=== PATIENT | male | born 1945 | race Caucasian/White ===

== ENCOUNTER 2017-12-27 20:26 | Inpatient (IN) | payer MEDICARE ==
[~2017-12-27] VITALS: Ht 170.2 cm; Wt 86.1 kg
[2017-12-27] MEDS ORDERED: IOHEXOL 350 MG/ML 10 ML VIAL (for RAD DIAG) IVCONTRAST ONE (20:27)
[2017-12-27 20:32] VITALS: BP 174/83; PULSE 80; RESP 18; TEMP 99.3; O2SAT 96
[2017-12-27 20:36] VITALS: RESP 18; O2SAT 96
[2017-12-27] MEDS ORDERED: ZOLO100T PO (20:58)
[2017-12-27 21:05] LABS: AUTOMATED NEUTROPHIL # 11.1 TH/MM3 (1.8-7.7); BASOPHIL # 0.3 TH/MM3 (0-0.2); EOSINOPHIL # 0.2 TH/MM3 (0-0.4); EOSINOPHIL % 1.4 % (0.0-4.0); HEMATOCRIT 44.5 % (39.0-51.0); HEMOGLOBIN 15.2 GM/DL (13.0-17.0); LYMPH % 7.9 % (9.0-44.0); MEAN CELL VOLUME 88.1 FL (80.0-100.0); MEAN CORPUSCULAR HGB CONC 34.1 % (32.0-36.0); MEAN PLATELET VOLUME 7.4 FL (7.0-11.0); MONO % 2.7 % (0.0-8.0); MONOCYTE # 0.4 TH/MM3 (0-0.9); PLATELET COUNT 275 TH/MM3 (150-450); RED BLOOD COUNT 5.05 MIL/MM3 (4.50-5.90); WHITE BLOOD COUNT 13.1 TH/MM3 (4.0-11.0)
[2017-12-27 21:12] LABS: CHLORIDE 101 MEQ/L (98-107); SODIUM (NA) 138 MEQ/L (136-145)
[2017-12-27 21:15] LABS: CALCIUM 8.6 MG/DL (8.5-10.1)
[2017-12-27 21:16] LABS: ALBUMIN 3.9 GM/DL (3.4-5.0); BICARBONATE 29.7 MEQ/L (21.0-32.0); BLOOD UREA NITROGEN 22 MG/DL (7-18); GLUCOSE,RANDOM 109 MG/DL (74-106)
[2017-12-27 21:18] LABS: INTERNATIONAL NORMALIZED RATIO 1.1 RATIO; PROTHROMBIN TIME - PATIENT 11.4 SEC (9.8-11.6)
[2017-12-27 21:19] LABS: ALT (GPT) 18 U/L (12-78); AST (GOT) 17 U/L (15-37); CREATININE 0.98 MG/DL (0.60-1.30); GLOMERULAR FILTRATION RATE 75 ML/MIN (>89)
[2017-12-27 21:21] LABS: TOTAL BILIRUBIN ADULT 0.3 MG/DL (0.2-1.0); TOTAL PROTEIN 7.3 GM/DL (6.4-8.2)
[2017-12-27 21:22] LABS: ALKALINE PHOSPHATASE 80 U/L (45-117)
[2017-12-27 21:24] LABS: TROPONIN I LESS THAN 0.02 NG/ML (0.02-0.05)
[2017-12-27] MEDS ORDERED: KETOROLAC TROMETHAMINE 30 MG/ML (IVP) VIAL IV PUSH ONE (21:30)
[2017-12-27] MEDS ORDERED: ONDANSETRON HCL 4 MG/2 ML VIAL IV PUSH ONE (21:30)
[2017-12-27 21:42] VITALS: BP 174/76; PULSE 79; RESP 16; O2SAT 96
--- NOTE | 2017-12-27 21:43 | PD ---
HPI Chief Complaint: Abdominal Pain Time Seen by Provider: 20:29 Travel History International Travel<30 days: No Contact w/Intl Traveler<30days: No Traveled to known affect area: No History of Present Illness HPI Patient is a 72-year-old male presents emergency department with a 3-4 day history of nausea vomiting intermittent diarrhea. Patient was actually at a local seafood restaurant tonight when he had 2 episodes of emesis which left him feeling very weak almost like he was going to pass out. He states abdominal pain is cramping throughout his entire abdomen is been gradually worsening over the past 3-4 days. He states he had a colonoscopy and is due for another one but his last colonoscopy showed no abnormality. He has had chills without fevers. Very loose stool and nonbilious nonbloody emesis. He states his symptoms have never happened to him before 3 or 4 days ago. Has not had any chest pain no shortness of breath no blood in stool no blood in the emesis. Symptoms are moderate, for the past 3-4 days, gradually worsening and associated signs and symptoms as above. Patient cannot think of any inciting events but the only thing that he is eaten that is new for him is the shrimp he had tonight and thinks that might be playing a part of it however multiple other parties had the shrimp tonight nobody else is sick. PFSH Past Medical History Anxiety: Yes Tetanus Vaccination: < 5 Years Influenza Vaccination: Yes Social History Alcohol Use: Yes (Socially) Tobacco Use: No Substance Use: No Allergies-Medications (Allergen,Severity, Reaction): Coded Allergies: No Known Drug Allergies (Verified Allergy, Unknown, 12/27/17) Reported Meds & Prescriptions Reported Meds & Active Scripts Active Reported Zoloft (Sertraline HCl) 100 Mg Tab 100 Mg PO DAILY Review of Systems Except as stated in HPI: all other systems reviewed are Neg Physical Exam Narrative GENERAL: Well-developed, well-nourished, nontoxic appearance, no obvious distress. SKIN: Focused skin assessment warm/dry. HEAD: Atraumatic. Normocephalic. EYES: Pupils equal and round. No scleral icterus. No injection or drainage. ENT: No nasal bleeding or discharge. Mucous membranes pink and moist. NECK: Trachea midline. No JVD. CARDIOVASCULAR: Regular rate and rhythm. No murmur appreciated. RESPIRATORY: No accessory muscle use. Clear to auscultation. Breath sounds equal bilaterally. GASTROINTESTINAL: Abdomen soft with some voluntary guarding, no rebound no percussive tenderness. No CVA tenderness. Voluntary guarding is more pronounced in the right upper quadrant. MUSCULOSKELETAL: No obvious deformities. No clubbing. No cyanosis. No edema. NEUROLOGICAL: Awake and alert. No obvious cranial nerve deficits. Motor grossly within normal limits. Normal speech. PSYCHIATRIC: Appropriate mood and affect; insight and judgment normal. Data Data Last Documented VS Vital Signs Date Time Temp Pulse Resp B/P (MAP) Pulse Ox O2 Delivery O2 Flow Rate FiO2 12/27/17 23:14 68 18 174/76 (108) 95 Room Air 12/27/17 20:32 99.3 Orders Orders Electrocardiogram (12/27/17 20:29) Complete Blood Count With Diff (12/27/17 20:29) Comprehensive Metabolic Panel (12/27/17 20:29) Troponin I (12/27/17 20:29) Act Partial Throm Time (Ptt) (12/27/17 20:29) Prothrombin Time / Inr (Pt) (12/27/17 20:29) Urinalysis - C+S If Indicated (12/27/17 20:29) Ecg Monitoring (12/27/17 20:29) Iv Access Insert/Monitor (12/27/17 20:29) Oximetry (12/27/17 20:29) Ct Abd/Pel W Iv Contrast(Rout) (12/27/17 ) Ondansetron Inj (Zofran Inj) (12/27/17 21:30) Ketorolac Inj (Toradol Inj) (12/27/17 21:30) Iohexol 350 Inj (Omnipaque 350 Inj) (12/27/17 20:27) Vancomycin Inj (Vancomycin Inj) (12/27/17 23:45) Metronidazole 500 Mg Inj (Flagyl 500 Mg (12/27/17 23:45) Blood Culture (12/27/17 23:34) Piperacil-Tazo 4.5 Gm Premix (Zosyn 4.5 (12/27/17 23:45) Fluconazole 200 Mg Premix Bag (Diflucan (12/28/17 00:00) Admit To Inpatient (12/28/17 ) Vital Signs (Adult) Q4H (12/28/17 00:38) Activity Oob With Assistance (12/28/17 00:38) Judo Instructor / Telemetry .CONTINUOUS (12/28/17 00:38) Diet Npo (12/28/17 Breakfast) Sodium Chlor 0.9% 1000 Ml Inj (Ns 1000 M (12/28/17 00:38) Sodium Chloride 0.9% Flush (Ns Flush) (12/28/17 00:45) Sodium Chloride 0.9% Flush (Ns Flush) (12/28/17 09:00) Ondansetron Inj (Zofran Inj) (12/28/17 00:45) Basic Metabolic Panel (Bmp) (12/29/17 06:00) Complete Blood Count With Diff (12/29/17 06:00) Pt Request For Service (12/28/17 00:38) Case Management Consult (12/28/17 00:38) Naloxone Inj (Narcan Inj) (12/28/17 00:45) Inpatient Certification (12/28/17 ) Insert Ng Tube (12/28/17 00:37) Admit Order (Ed Use Only) (12/28/17 ) Consult General Surgery (12/28/17 ) Labs Laboratory Tests Test 12/27/17 20:51 12/27/17 21:40 White Blood Count 13.1 TH/MM3 Red Blood Count 5.05 MIL/MM3 Hemoglobin 15.2 GM/DL Hematocrit 44.5 % Mean Corpuscular Volume 88.1 FL Mean Corpuscular Hemoglobin 30.0 PG Mean Corpuscular Hemoglobin Concent 34.1 % Red Cell Distribution Width 14.0 % Platelet Count 275 TH/MM3 Mean Platelet Volume 7.4 FL Neutrophils (%) (Auto) 86.0 % Lymphocytes (%) (Auto) 7.9 % Monocytes (%) (Auto) 2.7 % Eosinophils (%) (Auto) 1.4 % Basophils (%) (Auto) 2.0 % Neutrophils # (Auto) 11.1 TH/MM3 Lymphocytes # (Auto) 1.0 TH/MM3 Monocytes # (Auto) 0.4 TH/MM3 Eosinophils # (Auto) 0.2 TH/MM3 Basophils # (Auto) 0.3 TH/MM3 CBC Comment DIFF FINAL Differential Comment Prothrombin Time 11.4 SEC Prothromb Time International Ratio 1.1 RATIO Activated Partial Thromboplast Time 21.8 SEC Blood Urea Nitrogen 22 MG/DL Creatinine 0.98 MG/DL Random Glucose 109 MG/DL Total Protein 7.3 GM/DL Albumin 3.9 GM/DL Calcium Level 8.6 MG/DL Alkaline Phosphatase 80 U/L Aspartate Amino Transf (AST/SGOT) 17 U/L Alanine Aminotransferase (ALT/SGPT) 18 U/L Total Bilirubin 0.3 MG/DL Sodium Level 138 MEQ/L Potassium Level 3.7 MEQ/L Chloride Level 101 MEQ/L Carbon Dioxide Level 29.7 MEQ/L Anion Gap 7 MEQ/L Estimat Glomerular Filtration Rate 75 ML/MIN Troponin I LESS THAN 0.02 NG/ML Urine Color YELLOW Urine Turbidity CLEAR Urine pH 6.0 Urine Specific [place] 1.025 Urine Protein 30 mg/dL Urine Glucose (UA) NEG mg/dL Urine Ketones NEG mg/dL Urine Occult Blood NEG Urine Nitrite NEG Urine Bilirubin NEG Urine Urobilinogen 0.2 MG/DL Urine Leukocyte Esterase NEG Urine Squamous Epithelial Cells 0-5 /hpf Urine Amorphous Sediment FEW Urine Mucus FEW /lpf Microscopic Urinalysis Comment CULT NOT INDICATED MDM Medical Decision Making Medical Screen Exam Complete: Yes Emergency Medical Condition: Yes Differential Diagnosis Gastritis, gastroenteritis, pancreatitis, electrolyte abnormally, dehydration. Narrative Course Patient was room to the emergency department, given the voluntary guarding in his age I think that a CAT scan of his abdomen is indicated. He is minimally elevated white blood cell count electrolytes are fairly within normal limits. Last 24 hours Impressions Abdomen/Pelvis CT 12/27/17 0000 Signed Impressions: Service Date/Time: Wednesday, December 27, 2017 22:45 - CONCLUSION: 1. There is an acute inflammatory process involving the mesentery and loops of proximal jejunum within the left upper quadrant. Microperforation is suspected given the tiny foci of extraluminal air within the mesentery. No abscess. Dilatation of the small bowel consistent with a focal ileus. 2. Colonic diverticulosis. 3. Left internal hernia. This contains fat. John Warren Jr., MD Results were discussed with the patient as well as Dr. Wahl, Dr. Wahl recommends the patient be transferred to the main hospital, likely will be managed nonoperatively but if the patient should worsening pain may be an operative candidate in the future. He recommends broad-spectrum antibiotics as well as Diflucan, n.p.o. NG tube and IV hydration. All of which have been ordered. These recommendations were discussed with the patient who is agreeable. Ultimately discussed with Dr. Goddard for admission and she is agreeable. The patient is feeling much better after Toradol and is stable for the floor. Diagnosis Primary Impression: Jejunitis Additional Impression: Small bowel perforation Admitting Information Admitting Physician Requests: Admit Condition: Stable Dru Alves MD Dec 27, 2017 21:43
[2017-12-27 21:56] LABS: BILIRUBIN, URINE NEG (NEG); BLOOD, URINE NEG (NEG); GLUCOSE,URINE NEG (NEG); KETONE, URINE NEG (NEG); NITRITE,URINE NEG (NEG); URINE COLOR YELLOW (YELLW/STRAW); URINE LEUKOCYTE ESTERASE NEG (NEG)
[2017-12-27 22:00] LABS: AMORPHOUS SEDIMENT, URINE FEW; MUCUS URINE FEW /lpf (OCC); SQUAMOUS EPITHELIAL CELL URINE 0-5 /hpf (0-5)
--- NOTE | 2017-12-27 23:04 | RADRPT ---
EXAM DATE/TIME: 12/27/2017 22:45 [facility] COMPARISON: No previous studies available for comparison. INDICATIONS : Abdomen pain with vomiting. IV CONTRAST: 70 cc Omnipaque 350 (iohexol) IV ORAL CONTRAST: No oral contrast ingested. RADIATION DOSE: 12.74 CTDIvol (mGy) MEDICAL HISTORY : None SURGICAL HISTORY : None. ENCOUNTER: Initial ACUITY: 1 day PAIN SCALE: 8/10 LOCATION: Bilateral abdomen TECHNIQUE: Volumetric scanning of the abdomen and pelvis was performed. Using automated exposure control and ad justment of the mA and/or kV according to patient size, radiation dose was kept as low as reasonably achievable to obtain optimal diagnostic quality images. DICOM format image data is available electro nically for review and comparison. FINDINGS: LOWER LUNGS: The visualized lower lungs are clear. Coronary artery atherosclerotic calcifications noted. LIVER: Homogeneous density without lesion. There is no dilation of the biliary tree. No calcified gallston es. SPLEEN: Normal size without lesion. PANCREAS: Within normal limits. KIDNEYS: Normal in size and shape. There is no mass, stone or hydronephrosis. ADRENAL GLANDS: Within normal limits. VASCULAR: There is no aortic aneurysm. BOWEL/MESENTERY: There is acute inflammatory process involving the mesentery and multiple loops of proximal jejunum wi thin the left upper quadrant. There is circumferential wall thickening. There are tiny foci of extral uminal air seen within the mesentery without large volume pneumoperitoneum. There is dilatation of th juan ramon loops of bowel. Mesenteric veins are patent. The no abscess. Small volume free fluid. Multiple di verticula throughout the colon without acute inflammation. ABDOMINAL WALL: Within normal limits. RETROPERITONEUM: There is no lymphadenopathy. BLADDER: No wall thickening or mass. REPRODUCTIVE: Within normal limits. INGUINAL: There is a left humeral hernia containing fat. No adenopathy. MUSCULOSKELETAL: Within normal limits for patient age. CONCLUSION: 1. There is an acute inflammatory process involving the mesentery and loops of proximal jejunum withi n the left upper quadrant. Microperforation is suspected given the tiny foci of extraluminal air with in the mesentery. No abscess. Dilatation of the small bowel consistent with a focal ileus. 2. Colonic diverticulosis. 3. Left internal hernia. This contains fat. John Warren Jr., MD on December 27, 2017 at 22:57 Board Certified Radiologist. This report was verified electronically.
[2017-12-27 23:14] VITALS: BP 174/76; PULSE 68; RESP 18; O2SAT 95
[2017-12-27] MEDS ORDERED: VANCOMYCIN INJ 1,000 MG in SODIUM CHLOR 0.9% 250 ML INJ 250 ML IV ONE (23:45)
[2017-12-27] MEDS ORDERED: metroNIDAZOLE 500 MG INJ 100 ML IV ONE (23:45)
[2017-12-27] MEDS ORDERED: PIPERACIL-TAZO 4.5 GM PREMIX 100 ML IV ONE (23:45)
[2017-12-28] VITALS (8 sets, daily range): BP systolic 107–140; BP diastolic 56–75; PULSE 69–85; RESP 16–21; TEMP 98.2–100.6; O2SAT 91–96
[2017-12-28] MEDS ORDERED: FLUCONAZOLE 200 MG PREMIX BAG 100 ML IV ONE
[2017-12-28] MEDS: SODIUM CHLOR 0.9% 1000 ML INJ 1,000 ML IV SCH ×3 (00:38→17:54)
[2017-12-28] MEDS ORDERED: Vancomycin Consult Pharmacy 1 EA OTHER SCH (00:45)
[2017-12-28] MEDS ORDERED: NALOXONE HCL 0.4 MG/ML AMP IV PUSH PRN (00:45)
[2017-12-28] MEDS ORDERED: SODIUM CHLORIDE 0.9% FLUSH 10 ML FLUSH IV FLUSH PRN (00:45)
[2017-12-28] MEDS ORDERED: KETOROLAC TROMETHAMINE 30 MG/ML (IVP) VIAL IV PUSH PRN (04:00)
[2017-12-28] MEDS: PIPERACIL-TAZO 4.5 GM PREMIX 100 ML IV SCH ×3 (06:10→17:45)
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
[2017-12-28] MEDS: MORPHINE SULFATE 2 MG/ML INJ IV PUSH PRN ×2 (06:39→16:14)
[2017-12-28] MEDS: ONDANSETRON HCL 4 MG/2 ML VIAL IVP PRN ×2 (06:39→16:13)
[2017-12-28] MEDS: SODIUM CHLORIDE 0.9% FLUSH 10 ML FLUSH IV FLUSH SCH ×2 (08:44→21:00)
[2017-12-28] MEDS: VANCOMYCIN INJ 1,750 MG in SODIUM CHLORID 0.9% 500 ML INJ 500 ML IV SCH (10:41)
--- NOTE | 2017-12-28 14:45 | HHI.FPPN ---
Addendum to progress note ADDENDUM Reason for addendum: Additonal documentation Additional information Patient seen. Pain is improved. Minimal abdominal tenderness at this time. Tolerating p.o. intake. Stable clinical status overall. Andrés Hebert MD Dec 28, 2017 14:45
--- NOTE | 2017-12-28 17:23 | MB ---
cc: Preston Wahl MD DATE OF CONSULT: 12/28/2017 REASON FOR CONSULTATION: Microperforation of the jejunum. HISTORY OF PRESENT ILLNESS: The patient is a very pleasant 72-year-old male who states that over the past couple of weeks he has been having abdominal pain in the lower mid abdomen. This became incredibly severe over the last couple of days. He thought maybe it was a hernia. The patient apparently reported a syncopal episode yesterday after stepping outside from a restaurant. PAST MEDICAL HISTORY: Significant for a history of bronchitis. PAST SURGICAL HISTORY: None. ALLERGIES: HE HAS NO KNOWN DRUG ALLERGIES. SOCIAL HISTORY: He has never smoked, no ETOH abuse, no drugs. PHYSICAL EXAMINATION: GENERAL: Reveals a pleasant male, in no acute distress. VITAL SIGNS: Blood pressure 130/64, pulse 80, respirations 16, 96% sat on room air. Temperature is 100.5. HEENT: Sclerae anicteric. Pupils reactive. CHEST: Clear to auscultation. CARDIAC: Reveals regular rate and rhythm. ABDOMEN: Soft with tenderness across the mid abdomen, in the periumbilical region and on the left and right sides. There are no hernias noted. EXTREMITIES: Pulses are presents. NEUROLOGIC: Nonfocal. LABORATORY VALUES: Demonstrate WBC of 13.1 with hemoglobin of 15.2 and platelets 275,000. Chemistries demonstrate sodium of 138, potassium 3.7, BUN and creatinine of 22 and 0.98. Liver function tests are within normal limits. IMAGING STUDIES: Demonstrate CT of the abdomen and pelvis which demonstrates an acute inflammatory process involving the mesentery and multiple loops of proximal jejunum in the left upper quadrant. There was circumferential wall thickening with tiny foci of extraluminal air in the mesentery. Mesenteric veins are patent and there is no abscess. ASSESSMENT: Acute inflammatory process involving the mesentery and loops of proximal jejunum with a microperforation. PLAN: N.p.o., IV fluids, antibiotics. Consider NG tube placement. If the patient's pain does not subside or improve, or if he has deterioration, he will require exploration. I have discussed this with the patient and he is amenable to nonoperative management at this time. We will continue to follow with you. MD PORFIRIO Hare/KD , 05:03 PM , 05:22 PM
[2017-12-28] MEDS: FLUCONAZOLE 200 MG PREMIX BAG 100 ML IV SCH (23:00)
--- NOTE | 2017-12-28 23:33 | EKG ---
Date Performed: 12/27/2017 Time Performed: 21:09:35 PTAGE: 72 years EKG: Sinus rhythm LOW QRS VOLTAGE IN PRECORDIAL LEADS PATTERN CONSISTENT WITH PULMONARY DISEASE INCOMPLETE RIGHT BUNDL E BRANCH BLOCK NONSPECIFIC T-WAVE ABNORMALITY ABNORMAL ECG NO PREVIOUS TRACING DOCTOR: Piyush Mcclellan Interpretating Date/Time 12/28/2017 23:31:22
[2017-12-29] VITALS (7 sets, daily range): BP systolic 113–152; BP diastolic 59–78; PULSE 62–81; RESP 16–18; TEMP 97.4–98.9; O2SAT 90–97
[2017-12-29] MEDS: PIPERACIL-TAZO 4.5 GM PREMIX 100 ML IV SCH ×4 (00:06→16:53)
[2017-12-29] MEDS: SODIUM CHLOR 0.9% 1000 ML INJ 1,000 ML IV SCH ×3 (00:06→17:55)
[2017-12-29] MEDS: VANCOMYCIN INJ 1,750 MG in SODIUM CHLORID 0.9% 500 ML INJ 500 ML IV SCH ×2 (03:18→21:04)
[2017-12-29] MEDS: ONDANSETRON HCL 4 MG/2 ML VIAL IVP PRN (06:31)
[2017-12-29] MEDS: MORPHINE SULFATE 2 MG/ML INJ IV PUSH PRN (06:31)
[2017-12-29 07:20] LABS: AUTOMATED NEUTROPHIL # 8.8 TH/MM3 (1.8-7.7); BASOPHIL % 0.4 % (0.0-2.0); EOSINOPHIL # 0.1 TH/MM3 (0-0.4); EOSINOPHIL % 1.4 % (0.0-4.0); HEMATOCRIT 36.5 % (39.0-51.0); HEMOGLOBIN 12.6 GM/DL (13.0-17.0); LYMPH % 8.8 % (9.0-44.0); LYMPHOCYTE # 0.9 TH/MM3 (1.0-4.8); MEAN CELL VOLUME 89.2 FL (80.0-100.0); MEAN CORPUSCULAR HEMOGLOBIN 30.9 PG (27.0-34.0); MEAN CORPUSCULAR HGB CONC 34.6 % (32.0-36.0); MEAN PLATELET VOLUME 7.5 FL (7.0-11.0); MONO % 3.1 % (0.0-8.0); MONOCYTE # 0.3 TH/MM3 (0-0.9); NEUT % 86.3 % (16.0-70.0); PLATELET COUNT 209 TH/MM3 (150-450); RED BLOOD COUNT 4.09 MIL/MM3 (4.50-5.90); RED CELL DISTRIBUTION WIDTH 14.8 % (11.6-17.2); WHITE BLOOD COUNT 10.2 TH/MM3 (4.0-11.0)
[2017-12-29 07:41] LABS: BICARBONATE 27.2 MEQ/L (21.0-32.0); CALCIUM 8.2 MG/DL (8.5-10.1); CREATININE 1.2 MG/DL (0.60-1.30)
[2017-12-29] MEDS: SODIUM CHLORIDE 0.9% FLUSH 10 ML FLUSH IV FLUSH SCH ×2 (08:13→21:04)
--- NOTE | 2017-12-29 17:42 | HHI.PR ---
Subjective Remarks Pleasant gentleman resting in bed stated pain is alleviated No fever he is able to pass gas No NG tube inserted Surgery following Objective Vitals Vital Signs Date Time Temp Pulse Resp B/P (MAP) Pulse Ox O2 Delivery O2 Flow Rate FiO2 12/29/17 16:00 98.2 62 17 113/70 (84) 93 12/29/17 12:00 97.4 69 16 129/63 (85) 90 12/29/17 08:00 98.2 78 16 116/66 (83) 92 12/29/17 04:00 98.9 81 17 125/72 (89) 97 12/29/17 04:00 74 12/29/17 00:00 97.6 71 18 130/59 (82) 94 12/29/17 00:00 76 12/28/17 20:00 98.2 74 18 121/70 (87) 91 12/28/17 18:47 12/28/17 17:53 21 12/28/17 17:50 100.3 73 21 123/66 (85) 96 Nasal Cannula 2.00 I/O 12/28/17 12/28/17 12/28/17 12/29/17 12/29/17 12/29/17 06:59 14:59 22:59 06:59 14:59 22:59 Intake Total 250 ml 700 ml 1717.5 ml 100 ml Balance 250 ml 700 ml 1717.5 ml 100 ml Intake Oral 0 ml IV Total 250 ml 700 ml 1717.5 ml 100 ml # Voids 1 1 4 # Bowel Movements 1 Result Diagram: 12/29/17 0658 12/29/17 0658 Objective Remarks GENERAL: This is a well-nourished, well-developed patient, in no apparent distress. SKIN: No rashes, warm and dry HEAD: Atraumatic. Normocephalic. EYES: Pupils equal round and reactive. Extraocular motions intact. No scleral icterus. ENT: Nose without bleeding, or drainage, Airway patent. NECK: Trachea midline. Supple CARDIOVASCULAR: Regular rate and rhythm without murmurs, gallops, or rubs. RESPIRATORY: Fair air entry bilaterally. No wheezes, rales, or rhonchi. GASTROINTESTINAL: Abdomen soft, non-tender, nondistended. Positive bowel sounds MUSCULOSKELETAL: Extremities without clubbing, cyanosis, or edema. Pedal pulses appreciated NEUROLOGICAL: Awake and alert. Moves all extremity. Normal speech.no focal neurological deficit A/P Assessment and Plan Impression: Acute inflammation of mesentery/jejunum Ileus Microperforation Possible underlying gram-negative bacteremia. Patient with chills and shakes at home. Ongoing symptoms for past 2 weeks. Plan: 12/29 appreciate general surgery consultation, plan for conservative management for now, to decide on ex lap later by surgery Nothing by mouth. IV hydration. Zosyn 4.5 g IV every 6 hours. Vancomycin per creatinine clearance and levels. For con assault 200 mg IV every 24 hours. Pain control. DVT prophylaxis with SCD. GI prophylaxis on pantoprazole. Barber Diaz MD Dec 29, 2017 17:42
--- NOTE | 2017-12-29 21:21 | HHI.PR ---
cc: Preston Wahl MD Subjective Subjective Notes Up to chair Resolution of abdominal pain Objective Vitals/I&O Vital Signs Date Time Temp Pulse Resp B/P (MAP) Pulse Ox O2 Delivery O2 Flow Rate FiO2 12/29/17 20:00 98.3 67 17 152/78 (102) 92 12/28/17 17:50 Nasal Cannula 2.00 Labs Laboratory Tests Test 12/29/17 06:58 White Blood Count 10.2 Red Blood Count 4.09 Hemoglobin 12.6 Hematocrit 36.5 Mean Corpuscular Volume 89.2 Mean Corpuscular Hemoglobin 30.9 Mean Corpuscular Hemoglobin Concent 34.6 Red Cell Distribution Width 14.8 Platelet Count 209 Mean Platelet Volume 7.5 Neutrophils (%) (Auto) 86.3 Lymphocytes (%) (Auto) 8.8 Monocytes (%) (Auto) 3.1 Eosinophils (%) (Auto) 1.4 Basophils (%) (Auto) 0.4 Neutrophils # (Auto) 8.8 Lymphocytes # (Auto) 0.9 Monocytes # (Auto) 0.3 Eosinophils # (Auto) 0.1 Basophils # (Auto) 0.0 CBC Comment DIFF FINAL Differential Comment Blood Urea Nitrogen 28 Creatinine 1.20 Random Glucose 90 Calcium Level 8.2 Sodium Level 143 Potassium Level 3.9 Chloride Level 108 Carbon Dioxide Level 27.2 Anion Gap 8 Estimat Glomerular Filtration Rate 60 Date/Time Source Procedure Growth Status 12/28/17 00:15 Blood Peripheral Aerobic Blood Culture - Preliminary NO GROWTH IN 1 DAY Resulted 12/28/17 00:15 Blood Peripheral Anaerobic Blood Culture - Preliminary NO GROWTH IN 1 DAY Resulted Cardiovascular: Regular Lungs: Clear Abdomen: Non-distended, Non-tender Extremities: No edema A/P Assessment and Plan 72 year old male with abdominal pain; acute inflammatory process of jejunum with microperforation -WBC normal; afebrile -Abdominal pain benign -Continue IV antibiotics -If abdominal exam continues to be benign and WBC continues to trend down will start diet tomorrow and plan for transition to PO antibiotics -Anticipate DC on Tuesday Attending Note - Dr. Wahl Abdomen soft and nontender Home in next 48 hrs The exam, history, and the medical decision-making described in the above note were completed with the assistance of the mid-level provider. I reviewed and agree with the findings presented. I attest that I had a [id number] encounter with the patient on the same day, and personally performed and documented my assessment and findings in the medical record. Mariaa Morales/Learning And Development Coordinator KELLY Dec 29, 2017 21:21 Preston Wahl MD Jan 02, 2018 20:32
[2017-12-29] MEDS: FLUCONAZOLE 200 MG PREMIX BAG 100 ML IV SCH (23:31)
[2017-12-30] VITALS (9 sets, daily range): BP systolic 112–139; BP diastolic 58–72; PULSE 60–100; RESP 16–17; TEMP 96–98.9; O2SAT 90–100
[2017-12-30] MEDS: PIPERACIL-TAZO 4.5 GM PREMIX 100 ML IV SCH ×3 (00:13→11:47)
[2017-12-30] MEDS: SODIUM CHLOR 0.9% 1000 ML INJ 1,000 ML IV SCH ×2 (05:19→09:47)
[2017-12-30] MEDS: SODIUM CHLORIDE 0.9% FLUSH 10 ML FLUSH IV FLUSH SCH ×2 (08:10→19:39)
--- NOTE | 2017-12-30 11:14 | HHI.PR ---
Subjective Remarks Patient seen and examined earlier today he told me "I feel punk " He reported passing gas and having a runny stool bowel movement this morning Later on I will send a message from surgery [employer] patient feeling short of breath I ordered stat chest x-ray Objective Vitals Vital Signs Date Time Temp Pulse Resp B/P (MAP) Pulse Ox O2 Delivery O2 Flow Rate FiO2 12/30/17 08:00 98.9 66 16 125/67 (86) 90 12/30/17 05:00 96.0 100 17 112/58 (76) 100 12/30/17 04:21 66 12/30/17 00:00 74 12/30/17 00:00 97.4 62 17 131/72 (91) 94 12/29/17 20:37 78 12/29/17 20:00 98.3 67 17 152/78 (102) 92 12/29/17 16:00 98.2 62 17 113/70 (84) 93 12/29/17 12:00 97.4 69 16 129/63 (85) 90 I/O 12/29/17 12/29/17 12/29/17 12/30/17 12/30/17 12/30/17 07:00 15:00 23:00 07:00 15:00 23:00 Intake Total 1717.5 ml 200 ml 500 ml 2057.5 ml Balance 1717.5 ml 200 ml 500 ml 2057.5 ml Intake Oral 0 ml 400 ml 240 ml IV Total 1717.5 ml 200 ml 100 ml 1817.5 ml # Voids 4 4 1 # Bowel Movements 1 0 Result Diagram: 12/29/17 0658 12/29/17 0658 Objective Remarks GENERAL: This is a well-nourished, well-developed patient, in no apparent distress. SKIN: No rashes, warm and dry HEAD: Atraumatic. Normocephalic. EYES: Pupils equal round and reactive. Extraocular motions intact. No scleral icterus. ENT: Nose without bleeding, or drainage, Airway patent. NECK: Trachea midline. Supple CARDIOVASCULAR: Regular rate and rhythm without murmurs, gallops, or rubs. RESPIRATORY: Fair air entry bilaterally. No wheezes, rales, or rhonchi. GASTROINTESTINAL: Abdomen soft, non-tender, nondistended. Positive bowel sounds MUSCULOSKELETAL: Extremities without clubbing, cyanosis, or edema. Pedal pulses appreciated NEUROLOGICAL: Awake and alert. Moves all extremity. Normal speech.no focal neurological deficit A/P Assessment and Plan Impression: Acute inflammation of mesentery/jejunum Ileus Microperforation Possible underlying gram-negative bacteremia. Patient with chills and shakes at home. Ongoing symptoms for past 2 weeks. Plan: 12/30 appreciate general surgery consultation, a plan for conservative management for now, to decide on ex lap later by surgery Reported short of breath, chest x-ray showed left base atelectasis, IS every hour and monitor Nothing by mouth. IV hydration. Zosyn 4.5 g IV every 6 hours. Vancomycin per creatinine clearance and levels. For con assault 200 mg IV every 24 hours. Pain control. DVT prophylaxis with SCD. GI prophylaxis on pantoprazole. Discharge Planning In a.m. if stable and breathing is better Braber Diaz MD Dec 30, 2017 11:14
[2017-12-30 12:00] LABS: AUTOMATED NEUTROPHIL # 7.3 TH/MM3 (1.8-7.7); BASOPHIL # 0.1 TH/MM3 (0-0.2); BASOPHIL % 0.6 % (0.0-2.0); EOSINOPHIL # 0.2 TH/MM3 (0-0.4); EOSINOPHIL % 2.4 % (0.0-4.0); HEMATOCRIT 35.2 % (39.0-51.0); HEMOGLOBIN 11.5 GM/DL (13.0-17.0); LYMPH % 10.2 % (9.0-44.0); LYMPHOCYTE # 0.9 TH/MM3 (1.0-4.8); MEAN CELL VOLUME 90.9 FL (80.0-100.0); MEAN CORPUSCULAR HEMOGLOBIN 29.7 PG (27.0-34.0); MEAN CORPUSCULAR HGB CONC 32.7 % (32.0-36.0); MEAN PLATELET VOLUME 7.8 FL (7.0-11.0); MONO % 5.2 % (0.0-8.0); MONOCYTE # 0.5 TH/MM3 (0-0.9); NEUT % 81.6 % (16.0-70.0); PLATELET COUNT 206 TH/MM3 (150-450); RED BLOOD COUNT 3.88 MIL/MM3 (4.50-5.90); RED CELL DISTRIBUTION WIDTH 14.7 % (11.6-17.2)
[2017-12-30 12:27] LABS: BICARBONATE 26.4 MEQ/L (21.0-32.0); CALCIUM 7.6 MG/DL (8.5-10.1); CREATININE 0.83 MG/DL (0.60-1.30)
[2017-12-30] MEDS ORDERED: ACETAMINOPHEN/HYDROcodone 325 MG/5 MG TAB PO PRN ×2 (13:00)
[2017-12-30] MEDS: AMOXICILLIN/CLAVULANATE K 875 MG TAB PO SCH ×2 (14:35→20:10)
[2017-12-30] MEDS ORDERED: AMOX875T2 PO (15:01)
[2017-12-30] MEDS ORDERED: HYDR-3516 PO (15:01)
[2017-12-30] MEDS ORDERED: DIFL200T PO (15:25)
[2017-12-30] MEDS ORDERED: PHARMACY ORDERED LAB ONE (15:45)
--- NOTE | 2017-12-30 16:42 | HHI.PR ---
cc: Preston Wahl MD Subjective Subjective Notes Resting in bed Tolerated lunch; awaiting dinner Objective Vitals/I&O Vital Signs Date Time Temp Pulse Resp B/P (MAP) Pulse Ox O2 Delivery O2 Flow Rate FiO2 12/30/17 16:00 97.3 62 16 121/66 (84) 94 12/28/17 17:50 Nasal Cannula 2.00 Labs Laboratory Tests Test 12/30/17 11:17 White Blood Count 9.0 Red Blood Count 3.88 Hemoglobin 11.5 Hematocrit 35.2 Mean Corpuscular Volume 90.9 Mean Corpuscular Hemoglobin 29.7 Mean Corpuscular Hemoglobin Concent 32.7 Red Cell Distribution Width 14.7 Platelet Count 206 Mean Platelet Volume 7.8 Neutrophils (%) (Auto) 81.6 Lymphocytes (%) (Auto) 10.2 Monocytes (%) (Auto) 5.2 Eosinophils (%) (Auto) 2.4 Basophils (%) (Auto) 0.6 Neutrophils # (Auto) 7.3 Lymphocytes # (Auto) 0.9 Monocytes # (Auto) 0.5 Eosinophils # (Auto) 0.2 Basophils # (Auto) 0.1 CBC Comment DIFF FINAL Differential Comment Blood Urea Nitrogen 19 Creatinine 0.83 Random Glucose 69 Calcium Level 7.6 Sodium Level 142 Potassium Level 3.7 Chloride Level 107 Carbon Dioxide Level 26.4 Anion Gap 9 Estimat Glomerular Filtration Rate 91 Date/Time Source Procedure Growth Status 12/28/17 00:15 Blood Peripheral Aerobic Blood Culture - Preliminary NO GROWTH IN 2 DAYS Resulted 12/28/17 00:15 Blood Peripheral Anaerobic Blood Culture - Preliminary NO GROWTH IN 2 DAYS Resulted Cardiovascular: Regular Lungs: Clear Abdomen: Non-distended, Non-tender Extremities: No edema A/P Assessment and Plan 72 year old male with abdominal pain; acute inflammatory process of jejunum with microperforation -WBC normal; afebrile -Abdominal pain benign -Transition to PO antibiotics -DC IVF -GS clear for DC; He will follow up with PCP at home -Rx for antibiotics and pain on the chart Attending Note - Dr. Wahl Abdomen benign on diet Ok for discharge from [facility] The exam, history, and the medical decision-making described in the above note were completed with the assistance of the mid-level provider. I reviewed and agree with the findings presented. I attest that I had a [id number] encounter with the patient on the same day, and personally performed and documented my assessment and findings in the medical record. Mariaa MoralesP/Compotype Operator EMPLOYEE SERVICE OFFICER Dec 30, 2017 16:42 Preston Wahl MD Jan 02, 2018 20:35
--- NOTE | 2017-12-30 18:34 | RADRPT ---
EXAM DATE/TIME: 12/30/2017 18:11 [place] COMPARISON: No previous studies available for comparison. INDICATIONS : Short of breath. MEDICAL HISTORY : None. SURGICAL HISTORY : None. ENCOUNTER: Initial ACUITY: 3 days PAIN SCORE: 5/10 LOCATION: Bilateral chest FINDINGS: There is mild left base atelectasis. Right lung is clear. No pleural effusion or pneumothorax seen on either side. Heart size within normal limits. CONCLUSION: Mild left base atelectasis. Ciaran Ayala MD on December 30, 2017 at 18:31 Board Certified Radiologist. This report was verified electronically.
[2017-12-31] VITALS: BP 128/69; PULSE 68; RESP 17; TEMP 99; O2SAT 95
[2017-12-31 04:07] VITALS: PULSE 61
[2017-12-31 05:00] VITALS: BP 137/79; PULSE 63; RESP 17; TEMP 98.6; O2SAT 95
--- NOTE | 2017-12-31 07:53 | HHI.DCPOC ---
Discharge Care Plan Diagnosis: (1) Small bowel perforation (2) Jejunitis Your Health Problems Are: Difficulty with ADL Exercise Tolerance Goals to Promote Your Health * To prevent worsening of your condition and complications * To maintain your health at the optimal level Directions to Meet Your Goals Take your medications as prescribed Follow your dietary instruction Follow activity as directed Keep your appointments as scheduled Take your immunizations and boosters as scheduled If your symptoms worsen call your PCP, if no PCP go to Urgent Care Center or Emergency Room Smoking is Dangerous to Your Health. Avoid second hand smoke Call the 24-hour hour crisis hotline for domestic abuse at Tuan Emaunel MD Dec 31, 2017 07:53
[2017-12-31 08:00] VITALS: BP 124/94; PULSE 65; RESP 18; TEMP 98.4; O2SAT 90
[2017-12-31] MEDS: AMOXICILLIN/CLAVULANATE K 875 MG TAB PO SCH (08:53)
[2017-12-31] MEDS: SODIUM CHLORIDE 0.9% FLUSH 10 ML FLUSH IV FLUSH SCH (08:55)
[2017-12-31] MEDS ORDERED: FLUCONAZOLE 200 MG TAB PO SCH ×2 (09:00)
--- NOTE | 2017-12-31 11:43 | HHI.DS ---
Discharge Summary Admission Date Dec 28, 2017 at 00:40 Discharge Date: Dec 31, 2017 Admitting Diagnosis Small Bowel Infection/Inflammation with Microperforation. (1) Small bowel perforation ICD Code: K63.1 - Perforation of intestine (nontraumatic) Diagnosis: Principal Status: Acute (2) Jejunitis ICD Code: K52.9 - Noninfective gastroenteritis and colitis, unspecified Diagnosis: Principal Status: Acute Procedures none Brief History - From Admission Is from patient clear physician communication, and review of medical records. Patient reported that for the past 2 weeks, he has been having abdominal pain which pointed to lower mid abdomen. He thought that he was having hernia coming back. He was lifting some heavy objects because he was traveling from [place] to [facility] for vacation. He also reports of feeling extremely cold, shivering, shaking in the past few days. He felt bloating for past 3 days with soreness in his abdomen. Reports of nausea. Vomited a few times while at home and also while at [place] emergency room. Denies any diarrhea or constipation. He last moved his bowel today while in ER. It was normal stool. He denies any blood in his stool or in his urine. Denies any urinary symptoms. He states that he was at a restaurant with his family yesterday and he felt the pains come in and felt claustrophobic which was why he went outside for fresh air. While right outside of the restaurant, he had passed out. He stated he did not hit his head. He landed in the bushes. Patient presented to [place] emergency room. Imaging studies revealed jejunitis/microperforation/ileus. Patient's case was discussed with general surgeon on-call by ER physician. He was advised to transfer to the main hospital for further care. CBC/BMP: 12/30/17 1117 12/30/17 1117 Significant Findings Laboratory Tests Test 12/29/17 06:58 12/30/17 11:17 Red Blood Count 4.09 MIL/MM3 (4.50-5.90) 3.88 MIL/MM3 (4.50-5.90) Hemoglobin 12.6 GM/DL (13.0-17.0) 11.5 GM/DL (13.0-17.0) Hematocrit 36.5 % (39.0-51.0) 35.2 % (39.0-51.0) Neutrophils (%) (Auto) 86.3 % (16.0-70.0) 81.6 % (16.0-70.0) Lymphocytes (%) (Auto) 8.8 % (9.0-44.0) Neutrophils # (Auto) 8.8 TH/MM3 (1.8-7.7) Lymphocytes # (Auto) 0.9 TH/MM3 (1.0-4.8) 0.9 TH/MM3 (1.0-4.8) Blood Urea Nitrogen 28 MG/DL (7-18) 19 MG/DL (7-18) Calcium Level 8.2 MG/DL (8.5-10.1) 7.6 MG/DL (8.5-10.1) Chloride Level 108 MEQ/L (98-107) Estimat Glomerular Filtration Rate 60 ML/MIN (>89) Random Glucose 69 MG/DL (74-106) Imaging Last Impressions Chest X-Ray 12/30/17 0000 Signed Impressions: Service Date/Time: Saturday, December 30, 2017 18:11 - CONCLUSION: Mild left base atelectasis. Ciaran Ayala MD Abdomen/Pelvis CT 12/27/17 0000 Signed Impressions: Service Date/Time: Wednesday, December 27, 2017 22:45 - CONCLUSION: 1. There is an acute inflammatory process involving the mesentery and loops of proximal jejunum within the left upper quadrant. Microperforation is suspected given the tiny foci of extraluminal air within the mesentery. No abscess. Dilatation of the small bowel consistent with a focal ileus. 2. Colonic diverticulosis. 3. Left internal hernia. This contains fat. John Warren Jr., MD PE at Discharge GENERAL: This is a well-nourished, well-developed patient, in no apparent distress. SKIN: No rashes, warm and dry HEAD: Atraumatic. Normocephalic. EYES: Pupils equal round and reactive. Extraocular motions intact. No scleral icterus. ENT: Nose without bleeding, or drainage, Airway patent. NECK: Trachea midline. Supple CARDIOVASCULAR: Regular rate and rhythm without murmurs, gallops, or rubs. RESPIRATORY: Fair air entry bilaterally. Mild exp wheezes GASTROINTESTINAL: Abdomen soft, non-tender, nondistended. Positive bowel sounds MUSCULOSKELETAL: Extremities without clubbing, cyanosis, or edema. Pedal pulses appreciated NEUROLOGICAL: Awake and alert. Moves all extremity. Normal speech.no focal neurological deficit Hospital Course Acute inflammation of mesentery/jejunum with microperforation. Clinically improved. Evaluated by general surgery recommended medical management with antibiotics and pain control consult regarding narcotics. Blood cultures negative to date Chronic bronchitis. Still with ongoing wheezing denies shortness of breath with good exercise tolerance. Patient has inhalers at home. He was on steroids in the past. According to patient, he has had workup including pulmonary function test. Patient complains of postnasal drip. Will start Flonase. Recommended outpatient follow-up with pulmonary in [place]. DVT prophylaxis with SCD. GI prophylaxis on pantoprazole. Pt Condition on Discharge: Stable Discharge Disposition: Discharge Home Discharge Time: > 30 minutes Discharge Instructions DIET: Follow Instructions for: As Tolerated, No Restrictions Activities you can perform: Regular-No Restrictions Activities to Avoid: Driving Follow up Referrals: PCP Follow-up - 1 Week New Medications: Fluticasone Nasal [place] (Flonase Nasal [place]) 50 Mcg/Act [place] 50 MCG EACH NARE BID for Allergies, #1 BOTTLE 0 Refills Amoxicillin-Clavulanate (Amoxicillin-Clavulanate) 875-125 mg Tab 875 MG PO Q12HR for infection for 7 Days, TAB not for use in CrCl <30 mL/minute Fluconazole (Diflucan) 200 Mg Tab 200 MG PO DAILY for infection for 7 Days, #7 TAB Hydrocodone/Acetaminophen (Hydrocodone-Acetamin 5-325 mg) 5 Mg-325 Mg Tablet 1 TAB PO Q4H PRN for pain, #15 TAB Continued Medications: Sertraline (Zoloft) 100 Mg Tab 100 MG PO DAILY, #30 TAB 0 Refills Tuan Emanuel MD Dec 31, 2017 11:43
[2017-12-31] MEDS ORDERED: FLUT1SPR5 EACH NARE (11:44)
== END 2017-12-31 13:49 | disposition home or self-care (01) | DRG 394 ==
LOC: PHED 20:26 → PHEDA 12-28 00:40 → NEDA 12-28 03:50 → N07B 12-28 18:56
PROVIDERS: ADMIT Internal Medicine; ATTEND Internal Medicine
DX: K63.1 Perforation of intestine (nontraumatic) (principal); K56.7 Ileus, unspecified; J98.11 Atelectasis; K52.9 Noninfective gastroenteritis and colitis, unspecified; R55 Syncope and collapse; R09.82 Postnasal drip; J42 Unspecified chronic bronchitis; F41.9 Anxiety disorder, unspecified
CPT/HCPCS: 71045; 74177; 76937; 80048; 80053; 81001; 84484; 85025; 85610; 85730; 87040; 93005; 94150; 96365; 96375; J1450; J1885; J2270; J2405; J2543; J3370; J7030; J7040; J7050; Q9967